=== PATIENT | male | born 1940 | race Caucasian/White ===

== ENCOUNTER 2023-01-27 07:19 | Outpatient (CLI) | payer MEDICARE | END 2023-01-27 07:20 | disposition home or self-care (01) | LOC: CSHMRI 07:19 | PROVIDERS: ATTEND Specialist | DX: M54.16 Radiculopathy, lumbar region (principal); Z98.890 Other specified postprocedural states; M47.816 Spondylosis without myelopathy or radiculopathy, lumbar region; M51.26 Other intervertebral disc displacement, lumbar region; M48.8X6 Other specified spondylopathies, lumbar region | CPT/HCPCS: 72148 ==